=== PATIENT | male | born 1950 | race Caucasian/White ===

== ENCOUNTER → 2016-11-05 | Day surgery (SDC) | payer OTHER ==
[~2016-11-05] MED LIST: LACTATED RINGER'S 1000 ML INJ 1,000 ML ONE; LIDOCAINE 1%/EPINEPHrine 1:100,000 SOLN 30 ML VIAL ONE; MIDAZOLAM HCL 2 MG/2 ML VIAL ONE; PRED20 PO; PROPOFOL 200 MG/20 ML AMP IV ONE; SODIUM BICARBONATE 8.4% INJ 50 ML ONE; SULF1TAB47 PO; Z.0.NO CURRENT MEDS; ceFAZolin 2 GM PREMIX 50 ML ONE
--- NOTE | 2016-11-05 23:24 | MP ---
cc: FLOR DUBON DATE OF SURGERY 11/05/2016 PREOPERATIVE DIAGNOSES Basal cell carcinoma center of the nose and sebaceous cyst of the left cheek. POSTOPERATIVE DIAGNOSIS Basal cell carcinoma center of the nose and sebaceous cyst of the left cheek. OPERATION 1. Excision basal cell carcinoma left cheek 1.5 cm diameter and frozen section full-thickness skin graft from the left neck and 2. Excision of sebaceous cyst on the left cheek. SURGEON Mitesh Dubon MD ANESTHESIA General INDICATION A 66-year-old white male with above-mentioned biopsy proven basal cell carcinoma and a second sebaceous cyst on the left cheek desires to have the area removed. He underwent explanation of the procedure including reconstruction options and has opted to go with the full-thickness skin graft. He understands the possible risks and complications and is prepared to go with the surgery. PROCEDURE IN DETAIL The patient was brought to the operating room, was given supine position. Anesthesia was started. Prep and drape was done. Time-out was called and completed. IV antibiotic had been given. The prep and drape was done. The preoperative markings were reinforced. Local anesthetic was injected around the center of the nose lesion and it was excised full-thickness down to the periosteum. Suture marked superior, sent for frozen section. Hemostasis was completed with suture ligature and the left cheek sebaceous cyst was also directly excised. It will be sent for permanent only. The full-thickness skin graft was harvested from the low posterior neck to get the thickest skin in the area and the graft was inset on the nose. The cheek was also closed with internal sutures. Donor site was closed with internal sutures. The frozen section report I received indicated basal cell carcinoma with clear margins and sterile dressing was applied. The patient remained stable. Intraoperative blood loss less than 5 mL. No complications. signed, not fully reviewed MD MELISSA Casiano/ /8:33 AM /11:19 PM CHARISSA
== END | disposition home or self-care (01) ==
LOC: ESDC 06:21
PROVIDERS: ATTEND Plastic Surgery
DX: C44.311 Basal cell carcinoma of skin of nose (principal); L72.3 Sebaceous cyst
CPT/HCPCS: 00300; 11442; 11642; 15240; 88304; 88305; 88331; J0690; J2250; J3010; J7120

== ENCOUNTER 2017-04-01 08:49 | Emergency (ER) | payer SELFPAY ==
[~2017-04-01] VITALS: Ht 180.3 cm; Wt 73.0 kg
[~2017-04-01 08:49] MED LIST changes: -LACTATED RINGER'S 1000 ML INJ 1,000 ML ONE; -LIDOCAINE 1%/EPINEPHrine 1:100,000 SOLN 30 ML VIAL ONE; -MIDAZOLAM HCL 2 MG/2 ML VIAL ONE; -PROPOFOL 200 MG/20 ML AMP IV ONE; -SODIUM BICARBONATE 8.4% INJ 50 ML ONE; -ceFAZolin 2 GM PREMIX 50 ML ONE
[2017-04-01 08:55] VITALS: BP 156/89; PULSE 76; RESP 16; TEMP 98; O2SAT 99
[2017-04-01] MEDS ORDERED: SODIUM CHLORID 0.9% 500 ML INJ 500 ML IV ONE (09:15)
[2017-04-01] MEDS ORDERED: KETOROLAC TROMETHAMINE 30 MG/ML (IVP) VIAL IV PUSH ONE (09:15)
--- NOTE | 2017-04-01 09:15 | PD ---
HPI Chief Complaint: Complaint Time Seen by Provider: 08:59 Travel History International Travel<30 days: No Contact w/Intl Traveler<30days: No Traveled to known affect area: No History of Present Illness HPI The patient is a 66-year-old male who presents emergency department for 2 days of dysuria. The patient is a 2 day history of dysuria, mild frequency, and suprapubic discomfort. He denies any penile drainage, has not been sexually active in "some time". He denies any nausea, vomiting, diarrhea, or upper abdominal pain. He does note mild constipation for the last 3-4 days and took an [id number] laxative with good results yesterday. He denies any history of prostatitis or recurrent urinary tract infections. He does note his urine is somewhat dark colored without any visible blood. He denies any history nephrolithiasis. He denies any fever, chills, or sweats. The patient' s primary physician is Dr. Josh holliday. Symptoms are moderate and there are no current alleviating or exacerbating factors. PFSH Past Medical History Cerebrovascular Accident: Yes (tia) Social History Alcohol Use: No Tobacco Use: Yes (ONE PPD) Substance Use: No Allergies-Medications (Allergen,Severity, Reaction): Coded Allergies: No Known Allergies (Verified , 04/01/17) Reported Meds & Prescriptions Reported Meds & Active Scripts Active No Active Prescriptions or Reported Medications Review of Systems Except as stated in HPI: all other systems reviewed are Neg General / Constitutional: No: Fever, Chills Respiratory: No: Shortness of Breath Gastrointestinal: No: Nausea, Vomiting, Abdominal Pain Genitourinary: Positive: Dysuria, Pelvic Pain (suprapubic discomfort), No: Hematuria, Decreased Urinary Output, Hesitancy Physical Exam Narrative GENERAL: Awake, alert, pleasant 66-year-old male who appears his stated age and is in no acute respiratory distress. SKIN: Focused skin assessment warm/dry. Old appearing scars and right upper extremity. HEAD: Atraumatic. Normocephalic. EYES: No injection or drainage. ENT: No nasal bleeding or discharge. Mucous membranes pink and moist. NECK: Trachea midline. No JVD. CARDIOVASCULAR: Regular rate and rhythm. No murmur appreciated. RESPIRATORY: No accessory muscle use. Clear to auscultation. Breath sounds equal bilaterally. GASTROINTESTINAL: Abdomen soft, non-tender, nondistended. No obvious bladder distention. Mild suprapubic tenderness. Back: No CVA tenderness. Genitourinary: Circumcised phallus. No visible blood at the meatus. No visible drainage at the meatus. MUSCULOSKELETAL: No obvious deformities. No clubbing. No cyanosis. No edema. NEUROLOGICAL: Awake and alert. No obvious cranial nerve deficits. Motor grossly within normal limits. Normal speech. PSYCHIATRIC: Appropriate mood and affect; insight and judgment normal. Data Data Last Documented VS Vital Signs Date Time Temp Pulse Resp B/P Pulse Ox O2 Delivery O2 Flow Rate FiO2 04/01/17 09:12 16 04/01/17 08:55 98.0 76 156/89 99 Orders Complete Blood Count With Diff (04/01/17 09:07) Basic Metabolic Panel (Bmp) (04/01/17 09:07) Urinalysis - C+S If Indicated (04/01/17 09:07) Creatine Kinase (Cpk) (04/01/17 09:07) Sodium Chlorid 0.9% 500 Ml Inj (Ns 500 M (04/01/17 09:15) Ketorolac Inj (Toradol Inj) (04/01/17 09:15) Urine Culture (04/01/17 09:07) Ceftriaxone Inj (Rocephin Inj) (04/01/17 10:15) Labs Laboratory Tests Test 04/01/17 04/01/17 09:07 09:30 Urine Collection Type CLEAN CATCH Urine Color DARK-YELLOW Urine Turbidity MARKED Urine pH 6.0 Urine Specific [place] 1.028 Urine Protein 100 mg/dL Urine Glucose (UA) NEG mg/dL Urine Ketones 15 mg/dL Urine Occult Blood LARGE Urine Nitrite POS Urine Bilirubin NEG Urine Leukocyte Esterase MOD Urine RBC 20-24 /hpf Urine WBC INNUM /hpf Urine Squamous Epithelial 0-5 /hpf Cells Urine Bacteria FEW /hpf Microscopic Urinalysis Comment CULTURE INDICATED Urine Collection Time 09:07 White Blood Count 9.9 TH/MM3 Red Blood Count 4.88 MIL/MM3 Hemoglobin 14.4 GM/DL Hematocrit 43.4 % Mean Corpuscular Volume 88.9 FL Mean Corpuscular Hemoglobin 29.6 PG Mean Corpuscular Hemoglobin 33.3 % Concent Red Cell Distribution Width 14.4 % Platelet Count 288 TH/MM3 Mean Platelet Volume 7.2 FL Neutrophils (%) (Auto) 75.5 % Lymphocytes (%) (Auto) 11.8 % Monocytes (%) (Auto) 8.8 % Eosinophils (%) (Auto) 0.3 % Basophils (%) (Auto) 3.6 % Neutrophils # (Auto) 7.4 TH/MM3 Lymphocytes # (Auto) 1.2 TH/MM3 Monocytes # (Auto) 0.9 TH/MM3 Eosinophils # (Auto) 0.0 TH/MM3 Basophils # (Auto) 0.4 TH/MM3 CBC Comment DIFF FINAL Differential Comment Sodium Level 136 MEQ/L Potassium Level 4.4 MEQ/L Chloride Level 103 MEQ/L Carbon Dioxide Level 25.6 MEQ/L Anion Gap 7 MEQ/L Blood Urea Nitrogen 16 MG/DL Creatinine 1.40 MG/DL Estimat Glomerular Filtration 51 ML/MIN Rate Random Glucose 107 MG/DL Calcium Level 9.3 MG/DL Total Creatine Kinase 23 U/L [facility] Medical Decision Making Medical Screen Exam Complete: Yes Emergency Medical Condition: Yes Medical Record Reviewed: Yes Interpretation(s) Laboratory Tests Test 04/01/17 04/01/17 09:07 09:30 Urine Collection Type CLEAN CATCH Urine Color DARK-YELLOW Urine Turbidity MARKED Urine pH 6.0 Urine Specific [place] 1.028 Urine Protein 100 mg/dL Urine Glucose (UA) NEG mg/dL Urine Ketones 15 mg/dL Urine Occult Blood LARGE Urine Nitrite POS Urine Bilirubin NEG Urine Leukocyte Esterase MOD Urine RBC 20-24 /hpf Urine WBC INNUM /hpf Urine Squamous Epithelial 0-5 /hpf Cells Urine Bacteria FEW /hpf Microscopic Urinalysis Comment CULTURE INDICATED Urine Collection Time 09:07 White Blood Count 9.9 TH/MM3 Red Blood Count 4.88 MIL/MM3 Hemoglobin 14.4 GM/DL Hematocrit 43.4 % Mean Corpuscular Volume 88.9 FL Mean Corpuscular Hemoglobin 29.6 PG Mean Corpuscular Hemoglobin 33.3 % Concent Red Cell Distribution Width 14.4 % Platelet Count 288 TH/MM3 Mean Platelet Volume 7.2 FL Neutrophils (%) (Auto) 75.5 % Lymphocytes (%) (Auto) 11.8 % Monocytes (%) (Auto) 8.8 % Eosinophils (%) (Auto) 0.3 % Basophils (%) (Auto) 3.6 % Neutrophils # (Auto) 7.4 TH/MM3 Lymphocytes # (Auto) 1.2 TH/MM3 Monocytes # (Auto) 0.9 TH/MM3 Eosinophils # (Auto) 0.0 TH/MM3 Basophils # (Auto) 0.4 TH/MM3 CBC Comment DIFF FINAL Differential Comment Sodium Level 136 MEQ/L Potassium Level 4.4 MEQ/L Chloride Level 103 MEQ/L Carbon Dioxide Level 25.6 MEQ/L Anion Gap 7 MEQ/L Blood Urea Nitrogen 16 MG/DL Creatinine 1.40 MG/DL Estimat Glomerular Filtration 51 ML/MIN Rate Random Glucose 107 MG/DL Calcium Level 9.3 MG/DL Total Creatine Kinase 23 U/L Differential Diagnosis Differential diagnosis includes complicated UTI, ureteritis, prostatitis, nephrolithiasis, acute renal failure, cystitis. Narrative Course IV was established, labs are drawn and sent, and the patient was placed on cardiac telemetry monitoring and continuous pulse oximetry monitoring. 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 UA was sent to lab. The patient's creatinine is mildly elevated 1.4, EMR reveals no old labs to compare. White count is unremarkable. The patient is afebrile. UA is consistent with infection with innumerable WBCs and nitrites. 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 He is advised to follow-up with his primary physician , Dr. Josh Holliday, to ensure resolution of symptoms. UA culture has been ordered. The patient will be provided a copy of his labs at discharge. He is advised to return if symptoms worsen or progress. Diagnosis Primary Impression: UTI (urinary tract infection) Qualified Code: N39.0 - Urinary tract infection without hematuria, site unspecified Patient Instructions: General Instructions Additional Instructions: Please provide the patient a copy of his labs at discharge. Medications as directed. Follow-up with your primary physician. Return if symptoms worsen or progress. Med/Other Pt SpecificInfo: Prescription(s) given Scripts Phenazopyridine (Pyridium)100 Mg Cdl418 Mg PO Q8H PRN (DYSURIA) 2 Days Ref 0 Prov:Wilbur Palmer MD 04/01/17 Ciprofloxacin (Cipro)500 Mg Gle688 Mg PO BID 7 Days Ref 0 Prov:Wilbur Palmer MD 04/01/17 Disposition: DISCHARGE HOME Condition: Stable Wilbur Palmer MD Apr 01, 2017 09:15
[2017-04-01 09:38] LABS: BLOOD, URINE LARGE (NEG); GLUCOSE,URINE NEG (NEG); KETONE, URINE 15 mg/dL (NEG)
[2017-04-01 09:40] LABS: AUTOMATED NEUTROPHIL # 7.4 TH/MM3 (1.8-7.7); BASOPHIL # 0.4 TH/MM3 (0-0.2); BASOPHIL % 3.6 % (0.0-2.0); EOSINOPHIL % 0.3 % (0.0-4.0); HEMATOCRIT 43.4 % (39.0-51.0); HEMO FLAGS DIFF FINAL; LYMPH % 11.8 % (9.0-44.0); LYMPHOCYTE # 1.2 TH/MM3 (1.0-4.8); MEAN CELL VOLUME 88.9 FL (80.0-100.0); MEAN CORPUSCULAR HEMOGLOBIN 29.6 PG (27.0-34.0); MEAN CORPUSCULAR HGB CONC 33.3 % (32.0-36.0); MONO % 8.8 % (0.0-8.0); NEUT % 75.5 % (16.0-70.0); PLATELET COUNT 288 TH/MM3 (150-450); RED BLOOD COUNT 4.88 MIL/MM3 (4.50-5.90); RED CELL DISTRIBUTION WIDTH 14.4 % (11.6-17.2); WHITE BLOOD COUNT 9.9 TH/MM3 (4.0-11.0)
[2017-04-01 09:53] LABS: BICARBONATE 25.6 MEQ/L (21.0-32.0)
[2017-04-01 09:57] LABS: POTASSIUM 4.4 MEQ/L (3.5-5.1)
[2017-04-01 09:58] LABS: NITRITE,URINE POS (NEG)
[2017-04-01 09:59] LABS: METHOD OF COLLECTION CLEAN CATCH
[2017-04-01 10:00] LABS: SQUAMOUS EPITHELIAL CELL URINE 0-5 /hpf (0-5); URINE COLOR DARK-YELLOW (YELLW/STRAW); WBC, URINE INNUM /hpf (0-5)
[2017-04-01 10:02] LABS: BACTERIA, URINE FEW /hpf; COMMENT (UR) CULTURE INDICATED; CULTURE IF INDICATED CULTURE INDICATED
[2017-04-01] MEDS ORDERED: PHEN0.4T PO (10:13)
[2017-04-01] MEDS ORDERED: CIPR-9 PO (10:13)
[2017-04-01] MEDS ORDERED: cefTRIAXone INJ 1,000 MG in SODIUM CHLORIDE 0.9% INJ 100 ML IV ONE (10:15)
[2017-04-01 11:09] VITALS: BP 152/93
== END 2017-04-01 11:15 | disposition home or self-care (01) ==
LOC: PHED 08:49
DX: N39.0 Urinary tract infection, site not specified (principal); B96.20 Unspecified Escherichia coli [E. coli] as the cause of diseases classified elsewhere; F17.200 Nicotine dependence, unspecified, uncomplicated; Z86.79 Personal history of other diseases of the circulatory system
CPT/HCPCS: 80048; 81001; 82550; 85025; 87077; 87086; 87186; 96361; 96365; 96375; 99284; J0696; J1885; J7040